=== PATIENT | female | born 1955 | race Caucasian/White ===

== ENCOUNTER 2016-11-05 12:06 | Emergency (ER) | payer MEDICAID ==
[2016-11-05 12:43] LABS: % BASOPHILS 0.7 % (0.0-2.0); % EOSINOPHILS 7.8 % (0.0-5.0); % LYMPHOCYTES 28.7 % (20.0-50.0); % NEUTROPHILS 59.8 % (40.0-80.0); HEMATOCRIT 42.3 % (35.0-45.0); HEMOGLOBIN 13.9 gm/dL (11.7-15.5); MEAN CORPUSCULAR HEMOGLOBIN 28.8 pg (27.0-31.0); MEAN CORPUSCULAR HGB CONC 32.8 pg (28.0-36.0); MEAN PLATELET VOLUME 8.3 fl; NEUTROPHILE ABSOLUTE 4.8 Th/cmm (1.8-8.0); PLATELET COUNT 248 Th/cmm (150-400); RED BLOOD COUNT 4.81 Mil/cmm (3.80-5.10); RED CELL DISTRIBUTION WIDTH 12.4 % (11.5-20.0)
--- NOTE | 2016-11-05 12:57 | ED Physician Chart ---
Chief Complaint/HPI - Patient Information Date Seen:: 11/05/16 Time Seen:: 12:40 Chief Complaint:: near syncope History of Present Illness:: THIS IS A 61 YO FEMALE BIB HER SISTER FROM HOME WITH A NEAR SYNCOPAL EPISODE. SHE DENIES CHEST PAIN, HEAD PAIN AND ABDOMINAL PAIN. SHE STATES THAT SHE HAD SUDDEN BREATHING AND BECAME VERY WEAK. SHE HAS A HISTORY OF HYPERTENSION, HIGH CHOLESTEROL AND DM. SHE DENIES DRINKING BUT DOES SMOKE. Allergies:: Allergies Allergy/AdvReac Type Severity Reaction Status Date / Time prochlorperazine Allergy Verified 11/05/16 12:37 [From Compazine] Vitals:: Vital Signs - 8 hr 11/05/16 12:37 Temp 97.9 F HR 97 RR 22 BP 106/68 O2 Sat % 100 Historian:: Patient, Family Member (SISTER) Review:: Nurse's Note Reviewed Review of Systems - Review of Systems General/Constitutional: No fever, No chills, No weight loss, Weakness, No diaphoresis, No edema, No loss of appetite Skin: No skin lesions, No rash, No bruising Head: No headache, No light-headedness Eyes: No loss of vision, No pain, No diplopia ENT: No earache, No nasal drainage, No sore throat, No tinnitus Neck: No neck pain, No swelling, No thyromegaly, No stiffness, No mass noted Cardio Vascular: No chest pain, No palpitations, No PND, No orthopnea, No edema Pulmonary: SOB, No cough, No sputum, No wheezing GI: No nausea, No vomiting, No diarrhea, No pain, No melena, No hematochezia, No constipation, No hematemesis G/U: No dysuria, No frequency, No hematuria Musculoskeletal: No bone or joint pain, No back pain, No muscle pain Endocrine: No polyuria, No polydipsia Psychiatric: No prior psych history, No depression, No anxiety, No suicidal ideation Hematopoietic: No bruising, No lymphadenopathy Allergic/Immuno: No urticaria, No angioedema Neurological: No syncope, No focal symptoms, No weakness, No paresthesia, No headache, No seizure, No dizziness, No confusion, No vertigo Past Medical History - Past Medical History Obtainable: Yes Past Medical History: HTN, DM, Dyslipidemia Family History: Heart disease, HTN Social History: Smoker, No Alcohol, Illicit Drug Use Surgical History: Appendectomy, Hysterectomy Psychiatricy History: None Medication: Reviewed Family Medical History - Family Member Mother History Unknown: Yes Other Medical History: Pt. unable to state at this time. Physical Exam - Physical Examination General/Constitutional: Awake, Well-developed, well-nourished, Alert, No distress, GCS 15, Non-toxic appearing, Ambulatory Other Gen/Cons comments:: LETHARGIC Head: Atraumatic Eyes: Lids, conjuctiva normal, PERRL, EOMI Skin: Nl inspection, No rash, No skin lesions, No ecchymosis, Well hydrated, No lymphadenopathy ENMT: External ears, nose nl, Nasal exam nl, Lips, teeth, gums nl Neck: Nontender, Full ROM w/o pain, No JVD, No nuchal rigidity, No bruit, No mass, No stridor Respiratory: Nl effort/Exclusion, Clear to Auscultation, No Wheeze/Rhonchi/Rales Cardio Vascular: RRR, No murmur, gallop, rubs, NL S1 S2 GI: No tenderness/rebounding/guarding, No organomegaly, No hernia, Normal BS's, Nondistended, No mass/bruits, No McBurney tenderness : No CVA tenderness Extremities: No tenderness or effusion, Full ROM, normal strength in all extremities, No edema, Normal digits & nails Neuro/Psych: Alert/oriented, DTR's symmetric, Normal sensory exam, Normal motor strength, Judgement/insight normal, Mood normal, Normal gait, No focal deficits Misc: normal gait, Normal back, No paraspinal tenderness Labs/Radiology/EKG Results - Lab Results Results: Laboratory Tests 11/05/16 11/05/16 12:17 12:33 WBC 8.0 RBC 4.81 Hgb 13.9 Hct 42.3 MCV 88.0 MCH 28.8 MCHC Differential 32.8 RDW 12.4 Plt Count 248 MPV 8.3 Neutrophils % 59.8 Lymphocytes % 28.7 Monocytes % 3.0 Eosinophils % 7.8 H Basophils % 0.7 POC Glucose 186 H - Radiology Results Results: CHEST X-RAY = NAD - EKG Interpretations EKG Time:: 12:23 Rate & Rhythm: 87 [place]: RIGHT AXIS Intervals: NORMAL AND NO ECTOPIC Assessment - Assessment General Assessment: DEHYDRATION ED Septic Shock - . Is Septic Shock (SBP<90, OR Lactate>4 mmol\L) present?: No - <6hrs of presentation: Vital Signs: Vital Signs - 8 hr 11/05/16 12:37 Temp 97.9 F HR 97 RR 22 BP 106/68 O2 Sat % 100 Reassessment (Disposition) - Reassessment Reassessment Condition:: Improved - Diagnosis Diagnosis:: DEHYDRATION - Aftercare/Follow up Instructions Aftercare/Follow-Up Instructions:: Counseled pt regarding lab results/diagnosis & need follow up, Refer to Discharge Instructions, Counseled pt & family regarding lab results/diagnosis & need follow up - Patient Disposition Discharge/Transfer:: Home Condition at Disposition:: Improved
[2016-11-05 13:03] LABS: ALB/GLOB RATIO 1.5 (1.0-1.8); ALKALINE PHOSPHATASE 67 U/L (34-104); BILIRUBIN,TOTAL 0.4 mg/dL (0.3-1.0); BUN - UREA NITROGEN 23 mg/dL (7-25); BUN/CREATININE RATIO 20.9; CALCIUM SERUM 10.2 mg/dL (8.6-10.3); CARBON DIOXIDE 24.6 mEq/L (21.0-31.0); CHLORIDE 100 mEq/L (98-107); CHOLESTEROL 136 mg/dL (<200); CREATININE - SERUM 1.1 mg/dL (0.6-1.2); GLUCOSE 189 mg/dL (70-105); POTASSIUM SERUM 3.6 mEq/L (3.5-5.1); SGOT 42 U/L (13-39); SGPT/ALT 58 U/L (7-52); SODIUM SERUM 129 mEq/L (136-145); TRIGLYCERIDES 183 mg/dL (<150)
--- NOTE | 2016-11-05 13:28 | Diagnostic Imaging Report ---
CT scan of the brain without contrast History: Syncope Total DLP equals 596 CTDI equals 34.4 Axial sections were obtained from the base of the skull to the vertex. There is a normal ventricular system size. No focal parenchymal lesions are seen. No evidence of any mass effect or shift of midline structures. No extra-axial masses or abnormal fluid collections. Calcifications vertebral arteries appreciated Impression: Negative examination
[2016-11-05] MEDS ORDERED: Sodium Chloride 0.45% 1,000 ML IV ONE (13:44)
== END 2016-11-05 15:00 | disposition home or self-care (01) ==
LOC: ER 12:06
DX: E86.0 Dehydration (principal); E11.9 Type 2 diabetes mellitus without complications; E78.5 Hyperlipidemia, unspecified; I10 Essential (primary) hypertension; F17.200 Nicotine dependence, unspecified, uncomplicated; Z88.8 Allergy status to other drugs, medicaments and biological substances; Z90.710 Acquired absence of both cervix and uterus; Z90.49 Acquired absence of other specified parts of digestive tract
CPT/HCPCS: 36415-UA; 70450-TC; 71010-TC; 80053-TC; 80061-TC; 82948-90; 83036-90; 84443-TC; 84484-TC; 85025-TC; 86592-TC; 93005; J7030